=== PATIENT | female | born 1965 | race Caucasian/White ===

== ENCOUNTER 2021-09-28 13:58 | Emergency (ER) | payer OTHER ==
[2021-09-28 14:27] VITALS: BP 121/78; PULSE 65; TEMP 98.1; BMI 26.5
[2021-09-28] MEDS ORDERED: IBUPROFEN 600 MG TABLET (FP) PO ONE ×2 (15:49→16:15)
== END 2021-09-28 16:43 | disposition home or self-care (01) ==
LOC: JERFT 13:58
DX: M25.561 Pain in right knee (principal); W01.0XXA Fall on same level from slipping, tripping and stumbling without subsequent striking against object, initial encounter; Y92.512 Supermarket, store or market as the place of occurrence of the external cause
CPT/HCPCS: 73562-TC-RT-FY; 99283-25